=== PATIENT | female | born 1960 | race African-American/Black ===

== ENCOUNTER 2016-10-31 11:30 | Outpatient (CLI) | payer OTHER ==
[2016-10-31 13:36] LABS: Anion Gap 14 mmol/L (10-20); BUN (Urea Nitrogen) 16 mg/dL (9.8-20.1); Calc. Creatinine Clearance 0 mL/min (70-130); Calcium 9.6 mg/dL (7.8-10.44); Carbon Dioxide 24 mmol/L (22-29); Chloride 108 mmol/L (98-107); Estimated GFR-MDRD 58
== END 2016-10-31 11:31 | disposition home or self-care (01) ==
LOC: NAVSJIPCSP 11:30
PROVIDERS: ATTEND Internal Medicine Nephrology
DX: E55.9 Vitamin D deficiency, unspecified (principal); I12.9 Hypertensive chronic kidney disease with stage 1 through stage 4 chronic kidney disease, or unspecified chronic kidney disease; N18.3 Chronic kidney disease, stage 3 (moderate)
CPT/HCPCS: 36415; 80048; 82570; 84156

== ENCOUNTER 2018-03-06 12:47 | Emergency (ER) | payer OTHER | END 2018-03-06 13:32 | disposition home or self-care (01) | LOC: NAV ERS 12:47 | DX: H10.9 Unspecified conjunctivitis (principal); I10 Essential (primary) hypertension; J45.909 Unspecified asthma, uncomplicated; F17.210 Nicotine dependence, cigarettes, uncomplicated; Z79.899 Other long term (current) drug therapy | CPT/HCPCS: 99283 ==

== ENCOUNTER 2018-09-05 09:09 | Emergency (ER) | payer OTHER ==
[2018-09-05] MEDS ORDERED: Ibuprofen 800 MG TAB ONE (09:35)
[2018-09-05] MEDS ORDERED: Dexamethasone 20 MG/5 ML VIAL ONE (09:36)
[2018-09-05] MEDS ORDERED: cefTRIAXone\\ROCEPHIN 1 GM VIAL ONE (09:36)
[2018-09-05] MEDS ORDERED: Lidocaine 1% (PF) 30 ML VIAL ONE (09:37)
== END 2018-09-05 10:23 | disposition home or self-care (01) ==
LOC: NAV ERS 09:09
DX: J02.0 Streptococcal pharyngitis (principal); I10 Essential (primary) hypertension; J45.909 Unspecified asthma, uncomplicated; F17.210 Nicotine dependence, cigarettes, uncomplicated; Z79.899 Other long term (current) drug therapy
CPT/HCPCS: 87430; 96372; J0696; J1100; J2001

== ENCOUNTER 2020-11-11 11:20 | Outpatient (CLI) | payer OTHER ==
--- NOTE | 2020-11-11 11:50 | RAD ---
2 views of the right knee: 11/11/2020 COMPARISON: None HISTORY: Knee pain FINDINGS: Medial and lateral compartment narrowing noted, most prominent medially, with associated medial osteo phyte formation. No knee joint effusion, displaced fracture, or evidence of dislocation. IMPRESSION: Degenerative change, most prominently involving the medial compartment. No associated fra cture or dislocation.
== END 2020-11-11 11:21 | disposition home or self-care (01) ==
LOC: NAV RAD 11:20
PROVIDERS: ATTEND Nurse Practitioner Family
DX: M25.561 Pain in right knee (principal); M17.12 Unilateral primary osteoarthritis, left knee

== ENCOUNTER 2020-11-29 10:38 | Emergency (ER) | payer OTHER | END 2020-11-29 11:50 | disposition home or self-care (01) | LOC: NAV ERS 10:38 | DX: Z48.00 Encounter for change or removal of nonsurgical wound dressing (principal); J45.909 Unspecified asthma, uncomplicated; I10 Essential (primary) hypertension; F17.210 Nicotine dependence, cigarettes, uncomplicated; Z79.899 Other long term (current) drug therapy; Z79.51 Long term (current) use of inhaled steroids ==

== ENCOUNTER 2023-08-10 11:26 | Emergency (ER) | payer OTHER | END 2023-08-10 12:48 | disposition home or self-care (01) | LOC: NAV ERS 11:26 | DX: J03.90 Acute tonsillitis, unspecified (principal); I10 Essential (primary) hypertension; F17.210 Nicotine dependence, cigarettes, uncomplicated; Z79.899 Other long term (current) drug therapy | CPT/HCPCS: 87081; 87430; 99283 ==